=== PATIENT | female | born 1935 | race Caucasian/White ===

== ENCOUNTER 2016-08-08 06:59 | Outpatient (CLI) | payer MEDICARE, OTHER ==
[~2016-08-08] VITALS: Ht 157.5 cm; Wt 64.4 kg
--- NOTE | ~2016-08-08 | CATH ---
Cardiac Diagnostic Report Demographics Patient Name VALERIA Oliva Gender Female Date of 1935 Age 81 year(s) Patient Number [id number] Date of Study 08/08/2016 Visit Number [id number] Room Number G6399 [place] [id number] Ht 162.56 cm Wt 64.4 kg Referring Shahlalisaloli Tuckermy Primary Physician Physician MICHELLE Performing Efstratiou Secondary Physician Physician Aldair Apodaca MD Diagnostic Efstratiou Assisting Physician Physician Aldair Apodaca MD Interventional Physician Presentation Designer Physician Findings and Conclusions Diagnostic Findings and Conclusion Severe aortic stenosis by LOWELL calculation with low flow cardiac output. Mild 3 vessel CAD. Diagnostic Recommendations Refer for TAVR. Procedure Description The patient was brought to the diagnostic cardiac catheterization-EP laboratory in the fasting, non-sedated state. Informed consent was obtained in the written and verbal form after the risks and benefits were explained. The patient had no further questions and agreed to proceed. The planned puncture-incision site(s) were shaved and prepped with ChloraPrep and draped in the usual sterile manner. Conscious sedation, supplemental oxygen, and pain control medications were delivered by a registered nurse under physician guidance. Surface ECG rhythm, blood pressure measurement, and pulse oximetry were monitored throughout the procedure. Arterial access. The access site was infiltrated with lidocaine. The vessel was entered with the Seldinger technique. A sheath was advanced into the vessel and used for catheter placement. Venous access. The access site was infiltrated with 2% lidocaine. The vessel was entered with the Seldinger technique. A sheath was advanced into the vessel and used for catheter placement. Selective left coronary angiography. A catheter was advanced into the left coronary vessel ostium under Fluoroscopic guidance. Contrast was injected by hand. Images were obtained in multiple projections. Selective right coronary angiography. A catheter was advanced into the right coronary vessel ostium under fluoroscopic guidance. Contrast was injected by hand. Images were obtained in multiple projections. Left heart catheterization. A catheter was advanced across the aortic valve to the left ventricle under fluoroscopic guidance. Resting hemodynamics were obtained. Right heart catheterization. A [place] catheter was successfully advanced to the right atrium, right ventricle, pulmonary artery, and pulmonary artery wedge position under fluoroscopic guidance. Resting hemodynamics were obtained. Measurements included pressures, arterial and venous oxygen saturation samples, and cardiac output. The [place] was removed without difficulty. Arterial and Venous hemostasis was achieved. The patient was transferred to a regular nursing floor via cart accompanied by a nurse. The patient left the laboratory in stable condition. Diagnostic Cath Status: Elective Procedure Procedure Type Diagnostic procedure:Angiography:, Right and Left Heart Cath, Coronary Angios Indications: Aortic stenosis. The procedure was explained in detail to the patient. Risks, complications and alternative treatments were reviewed. Written consent was obtained. Medications Reviewed with Patient prior to Procedure. Angiographic Findings Dominance: Right Cardiac Arteries and Lesion Findings LMCA: Normal (0% Stenosis).Patent. LAD: Lesion on Prox LAD: 20% stenosis . Lesion on Dist LAD: 30% stenosis . Lesion on 1st Diag: Ostial.25% stenosis . LCx: Lesion on Dist CX: 20% stenosis . Lesion on 1st Ob Peggy% stenosis . RCA: Lesion on Prox RCA: 30% stenosis . Lesion on Dist RCA: 30% stenosis . Lesion on R PDA: Mid subsection.25% stenosis . Coronary Tree Procedure Data Procedure Date Date: 08/08/2016Start: 11:50 AMEnd: 12:45 PM Entry Locations - Antegrade Percutaneous access was performed through the Right Radial artery (Primary location). A 6 Fr sheath was inserted. Hemostasis was successfully obtained using Mechanical Compression. Closure Comments: R band with 10 cc air applied by Satnam Lopez RT.. - Retrograde Percutaneous access was performed through the Right Brachial vein. A 7 Fr sheath was inserted. Hemostasis was successfully obtained using Manual Compression. Closure Comments: Pressure held 10 minutes by Satnam Lopez RTNithya. Procedure Medications Order and Administration + + +-------+-------+ !Time !Medication !Dosage !Route ! + + +-------+-------+ !08/08/2016 !PAE Radial Cocktail: Heparin 5000 units, ! !I.A. ! !11:56 AM !Nitroglycerin 200mcg, Verapamil 3 mg ! ! ! ! !(ACC_3) ! ! ! + + +-------+-------+ Devices Used - A6 Fr. Dual Lumen Pigtailwas used for:LV Pressures. - A6 Fr. BS JR 4 Diag. Catheterwas used for:Right coronary angiography. - A6 Fr. BS JL 3.5 Diag. Catheterwas used for:Left coronary angiography. Contrast Material - Isovue 11219 ml Fluoroscopy Time: Diagnostic: 6:00 minutes. Total: 6:00 minutes. Fluoroscopy Dose: Diagnostic: 238 mGy. Total: 238 mGy. Estimated Blood Loss: 30 ml. Medical History Performed Procedures and Imaging Results - No ACC stress or imaging studies were performed. Allergies - No known allergies. Risk Factors The patient risk factors include:peripheral arterial disease, hypercholesterolemia, treated hypertension, family history of premature CAD, last creatinine: 1.2 mg/dl, creatinine clearance: 38.65 ml/min and dyslipidemia. Admission Data Admission Date: 08/08/2016 Admission Time: 06:59 AM Admit Source: Other Insurance Payors: Medicare. Admission Medications + +------+------+ + + + + !Medication !Dosage!Times !Last !Last !Administered !Comments ! ! ! !Per !Delivery !Delivery ! ! ! ! ! !Day !Date !Time ! ! ! + +------+------+ + + + + !ESTIVEN ! ! ! ! ! ! ! !Inhibitor ! ! ! ! ! ! ! !(any) ! ! ! ! ! ! ! + +------+------+ + + + + !Aspirin ! ! ! ! ! ! ! !(any) ! ! ! ! ! ! ! + +------+------+ + + + + !Statin (any)! ! ! ! ! ! ! + +------+------+ + + + + Clinical Evaluation Leading to Procedure - There were no CAD presentation symptoms. - There were no anginal symptoms. - The patient has been in a state of heart failure within the past two weeks. - The patient's heart failure status was assessed as NYHA Class II. Snapshots Hemodynamics Condition: Rest O2 Consumption: Estimated: 159.20Heart Rate: 81 bpm Oxygen Saturation +--------+-----+----+ +---+ + !Location!pCO2 !pO2 !% Saturation !Hgb!O2 Content ! +--------+-----+----+ +---+ + !PA ! ! !63.6 ! ! ! +--------+-----+----+ +---+ + !AO ! ! !89.3 ! ! ! +--------+-----+----+ +---+ + !RA ! ! !63 ! ! ! +--------+-----+----+ +---+ + !AO ! ! !88.4 ! ! ! +--------+-----+----+ +---+ + Pressures (mmHg) +-----+ + !Site !Pressure ! +-----+ + !RA !6/6 (4) ! +-----+ + !RV !25/0 ,4 ! +-----+ + !PCW !12/12 (5) ! +-----+ + !PA !30/6 (14) ! +-----+ + !AO !126/64 (90) ! +-----+ + !LV !149/3 ,6 ! +-----+ + !AO !126/64 (90) ! +-----+ + !LV !150/3 ,7 ! +-----+ + !AO !128/65 (91) ! +-----+ + !LV !151/3 ,7 ! +-----+ + !AO !127/65 (90) ! +-----+ + !LV !150/3 ,6 ! +-----+ + !LV !159/5 ,10 ! +-----+ + !LV !159/5 ,10 ! +-----+ + !LV !161/5 ,10 ! +-----+ + !AO !139/61 (92) ! +-----+ + !LV !161/5 ,10 ! +-----+ + !AO !138/60 (94) ! +-----+ + Cardiac Output + + +-----+ !Time !Cardiac Output (l/min) !Use ! + + +-----+ !08/08/2016 12:12 PM !3.66 !True ! + + +-----+ !08/08/2016 12:12 PM !3.51 !True ! + + +-----+ !08/08/2016 12:13 PM !3.7 !True ! + + +-----+ !08/08/2016 12:13 PM !3.68 !True ! + + +-----+ Cardiac Output +-------+ + + + !Method !CO (l/min) !CI (l/min/m2) !SV (ml) ! +-------+ + + + !Aura !4.29 !2.5 !53.07 ! +-------+ + + + !Thermal!3.6375 !2.2 !53.3 ! +-------+ + + + Valve Gradients and Areas + +--------+--------+--------+---------+ + + !Valve !Peak !Mean !Area !Index !Flow !Source ! + +--------+--------+--------+---------+ + + !Aortic !22 !23 !0.84 !0.5 !179.27 !Aura ! + +--------+--------+--------+---------+ + + !Aortic !22 !23 !0.72 !0.43 !152.01 !Thermal ! + +--------+--------+--------+---------+ + + Shunts Oxygen Values O2 Capacity 149.6 O2 Consumption 159.2 Flows (l/min) Qs 4.19 Qe/Qp 0.98 Qp 4.29 Qp/Qs 1.02 Qe 4.19 Vascular Resistance (dynes x sec x cm-5) + +-----+-----+----+----+---------+-------+ !CO method !TSVR !SVR !TPVR!PVR !TPVR/TSVR!PVR/SVR! + +-----+-----+----+----+---------+-------+ !Aura !21.91!21.03!3.34!2.19!0.15 !0.1 ! + +-----+-----+----+----+---------+-------+ !Thermal !25.84!24.8 !3.94!2.58!0.15 !0.1 ! + +-----+-----+----+----+---------+-------+ !Qp or Qs !22.43!21.53!3.34!2.19!0.15 !0.1 ! + +-----+-----+----+----+---------+-------+ Discharge Data Discharge Date: 08/08/2016 Hospital Status: Outpatient Signatures dtt: Emily Lipscomb dtd: 08/08/16 1150 Physician Self Edit
[~2016-08-08 06:59] MED LIST: ALDACTONE25 MG PO; ASCORBIC ACID500 MG PO; ASPIRIN EC81 MG PO; CALTRATE 600 WI1 TAB PO; LEVOTHROID(SYN75 MCG PO; LOTENSIN20 MG PO; NORVASC10 MG PO; SIMVASTATIN40 MG PO
[2016-08-08 07:35] LABS: BASOPHIL % 0.5 %; EOSINOPHIL # 0.3 K/uL (0.0-0.5); EOSINOPHIL % 4.9 %; HEMATOCRIT 33.7 % (33.0-46.0); IMMATURE GRANULOCYTE % 0.2 %; LYMPHOCYTE # 2.1 K/uL (0.8-4.0); LYMPHOCYTE % 32.3 %; MCH 30.2 pg (27.0-34.0); MCHC 32.6 gm/dL (32.0-36.5); MCV 92.6 fl (83.0-98.0); MONOCYTE # 0.5 K/uL (0.0-1.0); MONOCYTE % 7.5 %; MPV 10.5 fl (9.4-12.4); NEUTROPHIL # (ANC) 3.5 K/uL (1.8-7.8); NEUTROPHIL % 54.6 %; NRBC % 0 /100WBC (0-0.00); PLATELET COUNT 169 K/uL (150-450); RBC 3.64 M/uL (3.50-5.50); WBC 6.4 K/uL (4.0-11.0)
[2016-08-08 07:44] LABS: PROTIME 10.8 SECONDS (9.6-11.1); PTT 28 SECONDS (25-32)
[2016-08-08 07:50] LABS: ALBUMIN 3.9 gm/dL (3.5-5.0); CALCIUM 9.3 mg/dL (8.5-10.5); CREATININE 1.2 mg/dL (0.5-1.1); TOTAL BILIRUBIN 0.4 mg/dL (0.0-1.5); TOTAL PROTEIN 7.5 g/dL (6.0-8.4)
[2016-08-08] MEDS ORDERED: MUCOMYST 20200 MG/M1 PO (14:42)
== END 2016-08-08 16:35 | disposition disaster alternative care site (69) ==
LOC: GCAT 06:59 → GPCU 06:59 → GPOC 07:00 → GCAT 16:35 → GPOC 17:00
PROVIDERS: Internal Medicine Cardiovascular Disease
PROC: 4A023N8 Measurement of Cardiac Sampling and Pressure, Bilateral, Percutaneous Approach (ICD-10-PCS; principal; 2016-08-08)
PROC: B2111ZZ Fluoroscopy of Multiple Coronary Arteries using Low Osmolar Contrast (ICD-10-PCS; principal; 2016-08-08)
DX: I35.0 Nonrheumatic aortic (valve) stenosis (principal); I25.10 Atherosclerotic heart disease of native coronary artery without angina pectoris; E78.00 Pure hypercholesterolemia, unspecified; I12.9 Hypertensive chronic kidney disease with stage 1 through stage 4 chronic kidney disease, or unspecified chronic kidney disease; N18.3 Chronic kidney disease, stage 3 (moderate); Z79.82 Long term (current) use of aspirin; I73.9 Peripheral vascular disease, unspecified; Z79.899 Other long term (current) drug therapy; Z82.49 Family history of ischemic heart disease and other diseases of the circulatory system
CPT/HCPCS: C1769; C1887; C1894; J1644; J2001; J2250; J3010; J7030; J7060